=== PATIENT | female | born 1970 | race Caucasian/White ===

== ENCOUNTER 2025-02-12 19:14 | Emergency (ER) | payer MEDICAID ==
[~2025-02-12] VITALS: Ht 154.9 cm; Wt 60.6 kg
[2025-02-12 19:22] VITALS: TEMP 98.5
[2025-02-12 19:57] LABS: EOSINOPHILS # (AUTO) 0.1 X10'3 (0-0.9); WHITE BLOOD COUNT 4.5 X10'3 (4.5-11.0)
[2025-02-12 19:59] LABS: BASOPHILS # (AUTO) 0.1 X10'3 (0-0.2); BASOPHILS % (AUTO) 1.2 % (0-1); EOSINOPHILS % (AUTO) 2.3 % (0-6); HEMATOCRIT 37.1 % (35.0-45.0); LYMPHOCYTES # (AUTO) 1.6 X10'3 (1.1-4.8); MEAN CORPUSCULAR HEMOGLOBIN 31.3 PG (27.0-31.0); MEAN CORPUSCULAR HGB CONC 35.1 g/dL (33.0-36.5); MEAN CORPUSCULAR VOLUME 89.3 FL (78-98); MEAN PLATELET VOLUME 8.6 FL (7.4-10.4); MONOCYTES # (AUTO) 0.5 X10'3 (0-0.9); MONOCYTES % (AUTO) 10.1 % (2-12); NEUTROPHILS # (AUTO) 2.3 X10'3 (1.8-7.7); NEUTROPHILS % (AUTO) 51.4 % (42-75); PLATELET COUNT 212 X10'3 (140-440); RED BLOOD COUNT 4.15 X10'6 (4.20-5.60); RED CELL DISTRIBUTION WIDTH 13.1 % (11.5-14.5)
--- NOTE | 2025-02-12 20:16 | RADIOLOGY REPORT ---
Clinical History CP Comparison None Without Contrast JUAN MANUEL MONTELONGO, [id number] Technique: Single view PA upright chest x-ray Findings: Right lower lung zone cannot find any ill-defined opacity which could represent pneumonia, prominent cardiophrenic fat versus gastric hiatus hernia, correlation with CT scan is recommended. No pleural abnormality. The cardiomediastinal silhouette is otherwise unremarkable for an AP view. No acute osseous abnormality. Right neck surgical clips. The imaged part of the upper abdomen is unremarkable. Impression: Right lower lung zone cannot find any ill-defined opacity which could represent pneumonia, prominent cardiophrenic fat versus gastric hiatus hernia, correlation with CT scan is recommended. This report was electronically signed by Funmilayo Garcia MD on 02/12/2025 8:13:28 PM.
[2025-02-12 20:22] LABS: ALANINE AMINOTRANSFERASE 16 U/L (12-78); ALBUMIN/GLOBULIN RATIO 1.3 (1.1-1.5); ALKALINE PHOSPHATASE 81 IU/L (46-116); ANION GAP 8 (8-16); ASPARTATE AMINO TRANSFERASE 9 U/L (10-37); BILIRUBIN,TOTAL 0.4 MG/DL (0.1-1.0); BLOOD UREA NITROGEN 9 MG/DL (7-18); BUN/CREATININE RATIO 15.5 (10.0-20.0); CALCIUM 9.2 MG/DL (8.5-10.1); CHLORIDE 104 MMOL/L (99-107); CREATININE 0.58 MG/DL (0.40-0.90); FREE T4 (FREE THYROXINE) 1.28 NG/DL (0.73-1.40); GLUCOSE 109 MG/DL (70-104); POTASSIUM 3.4 MMOL/L (3.5-5.1); PRO BRAIN NATRIURETIC PEPTIDE 35 PG/ML (0-125); SODIUM 142 MMOL/L (135-145); THYROID STIMULATING HORMONE 0.11 ulU/ml (0.34-4.50); TOTAL CARBON DIOXIDE 30.3 MMOL/L (24-32); eCRCL 83 ML/MIN; eGFR > 90 ML/MIN
--- NOTE | 2025-02-12 23:19 | Physician Documentation ---
History of Present Illness ~ General Chief Complaint: See Chief Complaint Stated Complaint: POSS THYROID COMPLICATIONS Time Seen by MD: 23:17 History of Present Illness Initial Comments Patient presents to the emergency room for evaluation of palpitations that has been going on since her thyroidectomy at the end of November. No syncope. No fevers. Patient reports she feels it may be anxiety. Denies any cough cold congestion symptoms. Symptoms occur every other day. She has had previous Holter monitors which were negative. 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 Eyes: Conjunctival normal. EOMI. PERRL. ENT: Mucous membranes moist. No lid lag Neck: Supple, trachea is midline. Thyroid surgery scar noted Chest: Clear to auscultation bilaterally without rales, rhonchi, or wheezes. There is no accessory muscle use or retractions. Cardiac: RRR without murmurs, gallops, or rubs. Extremities: Normal strength. Normal range of motion. No deformities no pretibial myxedema Progress Results/Orders Results/Orders Vital Signs 02/12/25 19:22 Temp 98.5 Pulse 74 Resp 18 B/P (MAP) 121/71 Pulse Ox 100 O2 Flow Rate 0 Laboratory Tests Test 02/12/25 19:47 02/12/25 21:19 02/12/25 22:30 White Blood Count 4.5 Red Blood Count 4.15 L Hemoglobin 13.0 Hematocrit 37.1 Mean Corpuscular Volume 89.3 Mean Corpuscular Hemoglobin 31.3 H Mean Corpuscular Hemoglobin Concent 35.1 Red Cell Distribution Width 13.1 Platelet Count 212 Mean Platelet Volume 8.6 Neutrophils (%) (Auto) 51.4 Lymphocytes (%) (Auto) 35.0 Monocytes (%) (Auto) 10.1 Eosinophils (%) (Auto) 2.3 Basophils (%) (Auto) 1.2 H Neutrophils # (Auto) 2.3 Lymphocytes # (Auto) 1.6 Monocytes # (Auto) 0.5 Eosinophils # (Auto) 0.1 Basophils # (Auto) 0.1 CBC Comment Sodium Level 142 Potassium Level 3.4 L Chloride Level 104 Carbon Dioxide Level 30.3 Anion Gap 8 Blood Urea Nitrogen 9 Creatinine 0.58 Estimated GFR/1.73 m2 > 90 BUN/Creatinine Ratio 15.5 Glucose Level 109 H Calcium Level 9.2 Total Bilirubin 0.4 Aspartate Amino Transf (AST/SGOT) 9 L Alanine Aminotransferase (ALT/SGPT) 16 Alkaline Phosphatase 81 Troponin I High Sensitivity 4 4 < 4 L Pro-B-Type Natriuretic Peptide 35 Total Protein 7.0 Albumin 4.0 Globulin 3.0 Albumin/Globulin Ratio 1.3 Thyroid Stimulating Hormone (TSH) 0.11 L Free Thyroxine 1.28 Chemistry Comments Troponin I High Sens Percent Delta 0 Troponin I Hi Sens Absolute Change 0 EKG/XRAY/CT/US/VASC/MRI EKG : Additional Comment EKG interpreted by myself shows time of 193, rate 75, sinus rhythm, normal axis, no ST changes Medical Decision Making Findings Patient presents to the emergency room with palpitations. Differentials include but are not limited to thyroid disorder, cardiac arrhythmia, anxiety, musculoskeletal spasm therefore emergent labs ordered which were reassuring for slightly low TSH but normal free T4. T3 is a send out. Troponins negative and EKG is reassuring. Chest x-ray shows some degree of abnormality however patient denies any pulmonary symptoms and I do not feel she requires CT scan/antibiotics. She was established with a doctors in his being referred to a director of patient care with an appointment in early February. ER precautions discussed. Departure Disposition: HOME / SELF CARE / HOMELESS Impression: Primary Impression: Palpitations Condition: Stable Discharge Instructions: Palpitations Additional Instructions: Your TSH today was a little low 0.11 (.34 is normal) and your free T4 was 1.28 (normal) Troponins normal. EKG reassuring Referrals: NO PRIMARY CARE PROVIDER (PCP) Education Educated: Patient Educated regarding: diagnosis, need for follow up Signature Scribe Signature: No scribe Attestation: The note accurately reflects work and decisions made by me.Arturo Montano MD 02/12/25 23:39 ARTURO MONTANO MD February 12, 2025 23:19
[2025-02-13 00:04] VITALS: BP 125/70; PULSE 70; RESP 16; O2SAT 100
--- NOTE | 2025-02-13 07:51 | ELECTROCARDIOGRAPH REPORT ---
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 Jonathan Mandujano Measurements Intervals [place] Rate: 75 P: 44 PA: 156 QRS: 69 QRSD: 98 T: -11 QT: 360 QTc: 402 Interpretive Statements Sinus rhythm RSR' in V1 or V2, probably normal variant Borderline T abnormalities, anterior leads Baseline wander in lead(s) I,II,aVR Electronically Signed On 02-13-2025 12:11:[address] Jonathan Mandujano Please click the below link to view image of tracing.
== END 2025-02-13 00:07 | disposition home or self-care (01) ==
LOC: ER 19:15
DX: R00.2 Palpitations (principal)
CPT/HCPCS: 36415; 71045; 80053; 83880; 84439; 84443; 84480; 84484; 85025; 93005; 99285

== ENCOUNTER 2025-07-03 21:29 | Emergency (ER) | payer MEDICAID ==
[~2025-07-03] VITALS: Ht 154.9 cm; Wt 73.6 kg
[2025-07-03 21:58] VITALS: BP 121/59; PULSE 69; RESP 15; TEMP 97.6; O2SAT 99
--- NOTE | 2025-07-03 22:04 | Physician Documentation ---
History of Present Illness ~ Chief Complaint: Cold, cough & congestion Stated Complaint: POSS PNEUMONIA Time Seen by MD: 21:52 HPI 55-year-old female presents to the ED with a complaint of a right-sided chest discomfort since yesterday when she was hiking. She states she feels like it is bronchitis but she does not have a severe cough states she does have nasal drainage however. Denies any shortness of breath or chest pain. State that her family has a history of coagulopathy. Denies any history of smoking reports that she had asthma when she was a child. She denies any wheezing currently Recent treatment of thyroid cancer she has been in remission since April Day of Onset: Jul 03, 2025 Medication Reconciliation Allergies: Coded Allergies: Penicillins (Verified Allergy, Unknown, 07/03/25) >5 years, hives, no treatment, PEN-FAST 2 erythromycin base (Verified Allergy, Unknown, 07/03/25) Physical Exam Vital Signs: Temperature: 97.6, Source: Temporal, Heart Rate: 69, Respiratory Rate: 15, BP: 121/59, Pulse Oximetry: 99, Weight: 73.600 Progress Results/Orders Results/Orders Orders - SKYLER CORDOVA FORESTRY INSTRUCTOR Chest,Single View (07/03/25 22:03) Completed Orders - SKYLER CORDOVA FORESTRY INSTRUCTOR Chest,Single View (07/03/25 22:03) Electrocardiogram (07/03/25 ) D-Dimer (07/03/25 22:29) Cbc/Diff (07/03/25 22:29) BMP (07/03/25 22:29) Vital Signs 07/03/25 21:58 Temp 97.6 Pulse 69 Resp 15 B/P (MAP) 121/59 Pulse Ox 99 Laboratory Tests Test 07/03/25 22:40 White Blood Count 3.4 L Red Blood Count 4.15 L Hemoglobin 13.3 Hematocrit 37.9 Mean Corpuscular Volume 91.2 Mean Corpuscular Hemoglobin 32.0 H Mean Corpuscular Hemoglobin Concent 35.1 Red Cell Distribution Width 13.6 Platelet Count 203 Mean Platelet Volume 7.8 Neutrophils (%) (Auto) 42.1 Lymphocytes (%) (Auto) 39.4 Monocytes (%) (Auto) 13.4 H Eosinophils (%) (Auto) 3.9 Basophils (%) (Auto) 1.2 H Neutrophils # (Auto) 1.4 L Lymphocytes # (Auto) 1.3 Monocytes # (Auto) 0.5 Eosinophils # (Auto) 0.1 Basophils # (Auto) 0.0 CBC Comment D-Dimer < 0.19 D-Dimer Comment Sodium Level 139 Potassium Level 4.0 Chloride Level 105 Carbon Dioxide Level 28.4 Anion Gap 6 L Blood Urea Nitrogen 12 Creatinine 0.67 Estimated GFR/1.73 m2 > 90 BUN/Creatinine Ratio 17.9 Glucose Level 92 Calcium Level 8.9 Albumin 4.1 Chemistry Comments Medical Decision Making Findings Patient's symptoms initially presented as viral in nature however her nonspecific chest pressure and her recent cancer treatment along with a family history of coagulopathy I felt it was important that to rule out pulmonary embolism. Her D-dimer was negative her chest x-ray is unremarkable EKG was reassuring. At this time she has a safe discharge and likely is suffering from a upper respiratory viral Differential Dx:Considerations: Include: Allergic rhinitis, Influenza, Otitis media, Peritonsillar abscess, Pharyngitis-Diphtheria, Pharyngitis-Streptoccal, Pharyngitis-Viral, Pneumonia, Pnuemonitis, Sinusitis, URI, Other Departure Disposition: HOME / SELF CARE / HOMELESS Impression: Primary Impression: Cough Additional Impression: Acute respiratory infection Discharge Instructions: Upper Respiratory Infection, Adult Additional Instructions: Laboratory results were unremarkable. EKG was very reassuring at this time I am going to discharge you with the clinical diagnosis of an upper respiratory virus. Rest increase fluid intake and return to the ED if you have any worsening symptoms Referrals: NO PRIMARY CARE PROVIDER (PCP) Signature Scribe Signature: y Attestation: Scribed for Skyler Cordova Case Assembler by Skyler Fraser NP . 07/03/25 22:04 SKYLER CORDOVA NP Jul 03, 2025 22:04
--- NOTE | 2025-07-03 22:29 | RADIOLOGY REPORT ---
CHEST RADIOGRAPH Indication: cough Technique: Single frontal view of the chest was obtained COMPARISON: DI CHEST,SINGLE VIEW on DOS: 02/12/25 FINDINGS: Lines and Tubes: None Lungs: Clear Pleura: No effusion. No pneumothorax. Cardiomediastinal contours: Unremarkable Bones: Unremarkable IMPRESSION: 1. No acute disease.
--- NOTE | 2025-07-03 22:54 | ELECTROCARDIOGRAPH REPORT ---
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
[2025-07-03 22:55] LABS: MEAN PLATELET VOLUME 7.8 FL (7.4-10.4); RED CELL DISTRIBUTION WIDTH 13.6 % (11.5-14.5)
[2025-07-03 22:59] LABS: CREATININE 0.67 MG/DL (0.40-0.90); TOTAL CARBON DIOXIDE 28.4 MMOL/L (24-32); eCRCL 71 ML/MIN; eGFR > 90 ML/MIN
== END 2025-07-03 23:24 | disposition home or self-care (01) ==
LOC: ER 21:29
DX: J22 Unspecified acute lower respiratory infection (principal); R07.89 Other chest pain; Z88.0 Allergy status to penicillin; Z88.1 Allergy status to other antibiotic agents
CPT/HCPCS: 36415; 71045; 80048; 85025; 85379; 93005; 99285